=== PATIENT | male | born 1995 | race Caucasian/White ===

== ENCOUNTER 2016-06-23 16:01 | Emergency (ER) | payer BC ==
[~2016-06-23] VITALS: Ht 185.4 cm; Wt 80.0 kg
[2016-06-23 16:07] VITALS: BP 149/68; PULSE 73; RESP 12; TEMP 97.9; O2SAT 97
--- NOTE | 2016-06-23 17:30 | PD ---
HPI Chief Complaint: ENT Complaint Time Seen by Provider: 17:25 Travel History International Travel<30 days: No Contact w/Intl Traveler<30days: No Traveled to known affect area: No History of Present Illness HPI 20-year-old male presents to the emergency department for evaluation of possible salivary stone. He states he was seen at an urgent care and they stated he had a salivary stone and he should come to the emergency department for further evaluation. Patient states he had pain with swallowing and had some swelling earlier. However, the swelling has resolved. He reports pain over the left anterior cervical lymph node. There is no swelling noted. He has no fevers or chills. He denies any chronic medical problems or taking any prescribed medications. PFS Past Medical History Medical History: Denies Significant Hx Past Surgical History Surgical History: No Previous Surgery Social History Alcohol Use: No Tobacco Use: No Substance Use: No Review of Systems Except as stated in HPI: all other systems reviewed are Neg Physical Exam Narrative GENERAL: Well-developed well-nourished male patient, Ambulatory. Afebrile. SKIN: Warm and dry. HEAD: Normocephalic. Atraumatic. ENT: Mucosa pink and moist. No erythema or exudates. No uvular edema. No uvular , palatal, or tonsillar deviation. Airway patent. Nasal turbinates appear normal without nasal blood, purulent drainage or septal hematoma. Bilateral tympanic membranes are clear without erythema or perforation. Minimal tenderness over left anterior cervical lymph node. EYES: No scleral icterus. No injection or drainage. NECK: Supple, trachea midline. No JVD or lymphadenopathy. CARDIOVASCULAR: Regular rate and rhythm without murmurs, gallops, or rubs. RESPIRATORY: Breath sounds equal bilaterally. No accessory muscle use. Lungs sounds are clear to auscultation. GASTROINTESTINAL: Abdomen soft, non-tender, nondistended. MUSCULOSKELETAL: No cyanosis, or edema. BACK: Nontender without obvious deformity. No CVA tenderness. Data Data Last Documented VS Vital Signs Date Time Temp Pulse Resp B/P Pulse Ox O2 Delivery O2 Flow Rate FiO2 06/23/16 16:07 97.9 73 12 149/68 97 Orders Group A Rapid Strep Screen (06/23/16 17:24) Strep Culture (Group A) (06/23/16 17:50) MDM Medical Decision Making Medical Screen Exam Complete: Yes Emergency Medical Condition: Yes Medical Record Reviewed: Yes Differential Diagnosis strep pharyngitis vs. sialadenitis vs. lymphadenitis Narrative Course 20 year old male presents to the emergency department for evaluation of sore throat, stated he was told he had a salivary stone by urgent care. Patient appears well on exam. Strep swab is ordered and pending. Strep is negative. His physical exam is reassuring. I don't see any evidence of salivary stone on exam. However, I instructed the patient suck on hard sour candy. He is to follow his primary care physician or return for any acute worsening of symptoms. He is agreeable. The patient was discharged in stable condition with instructions, including return instructions and follow up instructions. Diagnosis Primary Impression: Pharyngitis Qualified Code: J02.9 - Pharyngitis, unspecified etiology Referrals: Primary Care Physician call for appointment Patient Instructions: General Instructions, Pharyngitis (ED), Sialoadenitis (ED ) Additional Instructions: Warm, salt water gargles. Suck on hard sour candy. Take Ibuprofen as directed as needed with food for pain. Follow up with a primary care physician. Return to the emergency department for any acute, worsening of symptoms. Med/Other Pt SpecificInfo: Prescription(s) given Scripts Ibuprofen 800 Mg Egh729 Mg PO TID PRN (PAIN SCALE 1 TO 10) #21 TAB Ref 0 Prov:Allyson Pace 06/23/16 Disposition: 01 DISCHARGE HOME Condition: Stable Allyson Pace Jun 23, 2016 17:30
[2016-06-23] MEDS ORDERED: IBUP800T23 PO (18:33)
== END 2016-06-23 18:45 | disposition home or self-care (01) ==
LOC: NEPB 16:01
DX: J02.9 Acute pharyngitis, unspecified (principal)
CPT/HCPCS: 87081; 87880; 99283